=== PATIENT | female | born 1960 | race Hispanic/Latino ===

== ENCOUNTER 2016-06-12 11:34 | Emergency (ER) | payer OTHER ==
[~2016-06-12] VITALS: Ht 149.9 cm; Wt 72.6 kg
[2016-06-12] MEDS ORDERED: CIPRO250 M1 PO (11:44)
[2016-06-12] MEDS ORDERED: TESSALON PERLE100 M1 PO (11:45)
--- NOTE | 2016-06-12 11:55 | ED INFLUENZA/URI COMPLAINT ---
History of Present Illness General Chief Complaint: General Adult Stated Complaint: NOT FEELING WELL X 4 DAYS, FEVER Source: patient Exam Limitations: no limitations Vital Signs & Intake/Output Vital Signs & Intake/Output Vital Signs Date Time Temp Pulse Resp B/P Pulse O2 O2 Flow FiO2 Ox Delivery Rate 06/12 1411 99.2 86 18 128/78 96 Room Air 06/12 1224 100.6 06/12 1138 100.6 99 18 150/88 97 Room Air Allergies Coded Allergies: No Known Allergies (06/12/16) Reconcile Medications Benzonatate (Tessalon Perle) 100 MG CAPSULE 1 CAP PO TID PRN COUGH (Reported) Ciprofloxacin HCl (Cipro) (Unknown Strength) TABLET (Unknown Dose) PO BID URI (Reported) Robitussin AC (Guaifenesin-Codeine Syrup) 200 MG-20 MG/10 ML LIQUID 10 ML PO Q6H PRN COUGH Triage Note: 56 Y/O FEMALE C/O COUGH AND BACK PAIN X 4 DAYS. 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 TEMP 100.6 WEARING MASK IN TRIAGE Triage Nurses Notes Reviewed? yes HPI: Patient is a 56 year old female presents complaining of fevers, cough with sputum production, dyspnea. Symptoms onset on Tuesday. patient saw her PMD and was placed on Cipro and Tessalon with no improvement. Positive sick contacts at home and at work. Patient has not received the influenza vaccination this season. (JAYLA WINTER) Past History Travel History Traveled to [place] past 21 day No Medical History Any Pertinent Medical History? none Neurological: NONE EENT: NONE Cardiovascular: NONE Respiratory: NONE Gastrointestinal: NONE Hepatic: NONE Renal: NONE Musculoskeletal: NONE Psychiatric: NONE Endocrine: NONE Blood Disorders: NONE Cancer(s): NONE ROUTE SALESPERSON/Reproductive: NONE Surgical History Surgical History: non-contributory Psychosocial History What is your primary language Romanian Tobacco Use: Never used Family History Hx Contributory? No (JAYLA WINTER) Review of Systems Review of Systems Constitutional: Reports: chills, fever. EENTM: Reports: no symptoms. Respiratory: Reports: cough, sputum production. Cardiovascular: Denies: chest pain. GI: Denies: abdominal pain, vomiting. Genitourinary: Reports: no symptoms. Musculoskeletal: Reports: no symptoms. Skin: Reports: no symptoms. Neurological/Psychological: Reports: no symptoms. Hematologic/Endocrine: Reports: no symptoms. Immunologic/Allergic: Reports: no symptoms. (JAYLA WINTER) Physical Exam Physical Exam General Appearance: well developed/nourished, alert, awake Head: atraumatic, normal appearance Eyes: Bilateral: normal appearance, PERRL, EOMI. Ears, Nose, Throat: normal ENT inspection, moist mucous membrane, hearing grossly normal, Tympanic normal, pharynx normal Neck: normal inspection, supple, full range of motion Respiratory: normal breath sounds, chest non-tender, no respiratory distress, lungs clear Cardiovascular: regular rate/rhythm Gastrointestinal: soft, non-tender Back: normal inspection, normal range of motion Extremities: normal inspection, normal capillary refill, normal range of motion, no edema Neurologic/Psych: no motor/sensory deficits, awake, alert, oriented x 3, normal gait, normal mood/affect Skin: intact, normal color, warm/dry Lymphatic: no anterior cervical kwabena Core Measures Severe Sepsis Present: No Septic Shock Present: No (JAYLA WINTER) Progress Differential Diagnosis: influenza, meningitis, pneumonia, pharyngitis, sinusitis Plan of Care: Orders Procedure Date/time Status XRY-CHEST XRAY, PA AND LATERAL 06/12 1215 Active 1345: Patient reports feeling improved after Ibuprofen and Robitussin with codeine. Awaiting results of chest x-ray. 1425: Discussed x-ray report with patient and need for follow up. Patient nontoxic appearing. Appears stable for discharge. (JAYLA WINTER) Diagnostic Imaging: Viewed by Me: Radiology Read. Discussed w/RAD: Radiology Read. CXR Impression: PATIENT: ROMANA KENT PRESENT AGE: 56 PATIENT ACCOUNT NO: [id number] : 58 LOCATION: [facility] ORDERING PHYSICIAN: JAYLA ACOSTA SERVICE DATE: 06/12/16 EXAM TYPE: RAD - XRY-CHEST XRAY, PA AND LATERAL EXAMINATION: XR CHEST CLINICAL INFORMATION: Question pneumonia COMPARISON: None TECHNIQUE: Frontal and lateral films of the chest FINDINGS: Heart size and pulmonary vascularity is within normal limits. No focal consolidation is identified. No atelectasis is seen. There is a 5 x 3 mm nodular density projecting over the right midlung zone on the frontal film. Although this could be a summation shadow from overlapping bony structures and vessels, a small parenchymal nodule would be difficult to exclude. Follow-up chest x-ray to assess for change or clearing could be helpful. If it persists on follow-up, CT scan of the chest could be considered for further evaluation. No acute findings are seen in the chest x-ray at this time. There is no pneumothorax or pleural effusion. There is mild hypertrophic spurring in the dorsal spine. IMPRESSION: No acute findings are seen on the chest x-ray. Ration of a small 5 mm nodular density in the right midlung zone seen on frontal view only. Follow-up chest x- ray and/or follow-up chest CT for clarification may be helpful. No other findings DICTATED BY: BRI PAGAN MD DATE/TIME DICTATED:06/12/161407 [employer] CAR[employer] SPECIALIST:DARSHANA DATE/TIME TRANSCRIBED:06/12/161407 CONFIDENTIAL, DO NOT COPY WITHOUT APPROPRIATE AUTHORIZATION. <Electronically signed in Other Vendor System> SIGNED BY: BRI PAGAN MD 06/12/16 1418 Initial ED EKG: none (JAYLA WINTER) Departure Departure Time of Disposition: 1426 Disposition: HOME OR SELF CARE Condition: Stable Clinical Impression Primary Impression: Bronchitis Additional Instructions: Drink plenty of fluids and rest. Follow-up with your primary care doctor within 1 week for recheck and further evaluation. You may require repeat x-ray or further imaging of your chest for evaluation of a possible nodule seen on x-ray. Return to the ER if breathing worsening, unable to stay hydrated or worsening of symptoms. Departure Forms: Customer Survey General Discharge Information Prescriptions: Current Visit Scripts Robitussin AC (Guaifenesin-Codeine Syrup) 10 ML PO Q6H PRN COUGH #150 ML (JAYLA WINTER) PA/ACCOUNT DIRECTOR Co-Sign Statement Statement: ED Attending supervision documentation- [] I saw and evaluated the patient. I have also reviewed all the pertinent lab results and diagnostic results. I agree with the findings and the plan of care as documented in the PA's/ACCOUNT DIRECTOR's documentation. [X] I have reviewed the ED Record and agree with the PA's/ACCOUNT DIRECTOR's documentation. [] Additions or exceptions (if any) to the PAs/ACCOUNT DIRECTOR's note and plan are summarized below: [] (KINDRA THOMPSON,ANNE Pereira)
[2016-06-12 14:11] VITALS: BP 128/78
--- NOTE | 2016-06-12 14:18 | RADIOLOGY REPORT ---
EXAMINATION: XR CHEST CLINICAL INFORMATION: Question pneumonia COMPARISON: None TECHNIQUE: Frontal and lateral films of the chest FINDINGS: Heart size and pulmonary vascularity is within normal limits. No focal consolidation is identified. No atelectasis is seen. There is a 5 x 3 mm nodular density projecting over the right midlung zone on the frontal film. Although this could be a summation shadow from overlapping bony structures and vessels, a small parenchymal nodule would be difficult to exclude. Follow-up chest x-ray to assess for change or clearing could be helpful. If it persists on follow-up, CT scan of the chest could be considered for further evaluation. No acute findings are seen in the chest x-ray at this time. There is no pneumothorax or pleural effusion. There is mild hypertrophic spurring in the dorsal spine. IMPRESSION: No acute findings are seen on the chest x-ray. Ration of a small 5 mm nodular density in the right midlung zone seen on frontal view only. Follow-up chest x-ray and/or follow-up chest CT for clarification may be helpful. No other findings
[2016-06-12] MEDS ORDERED: GUAIFENESIN-COD10 ML PO (14:30)
== END 2016-06-12 14:39 ==
LOC: ERH 11:34
DX: J40 Bronchitis, not specified as acute or chronic (principal)